=== PATIENT | female | born 1985 | race Caucasian/White ===

== ENCOUNTER → 2016-08-16 | Outpatient (CLI) | payer MEDICAID ==
[2016-08-16 12:56] LABS: ABSOLUTE EOSINOPHILS # (AUTO) 0.2 10^3/uL (0.0-0.6); ABSOLUTE LYMPHOCYTES (AUTO) 2.2 10^3/uL (0.5-4.7); ABSOLUTE MONOCYTES (AUTO) 0.6 10^3/uL (0.1-1.4); ABSOLUTE NEUT (AUTO) 4.5 10^3/uL (1.7-8.2); BASOPHILS % (AUTO) 0.5 % (0-2); EOSINOPHILS % (AUTO) 2.3 % (0-6); HEMATOCRIT 38.3 % (36.0-47.0); HGB HCT DIFFERENCE 0.7; LYMPHOCYTES % (AUTO) 28.8 % (13-45); MEAN CORPUSCULAR HEMOGLOBIN 29.5 pg (27.0-33.4); MEAN CORPUSCULAR HGB CONC 33.9 g/dL (32.0-36.0); MEAN CORPUSCULAR VOLUME 87 fl (80-97); MONOCYTES % (AUTO) 8.3 % (3-13); RED BLOOD COUNT 4.39 10^6/uL (3.72-5.28); RED CELL DISTRIBUTION WIDTH 15.1 % (11.5-14.0); SEGMENTED NEUTROPHILS % (AUTO) 60.1 % (42-78); WHITE BLOOD COUNT 7.5 10^3/uL (4.0-10.5)
== END ==
LOC: OD 12:08
PROVIDERS: ATTEND Otolaryngology
DX: Z72.0 Tobacco use (principal)
CPT/HCPCS: 36415; 85025

== ENCOUNTER 2016-08-31 06:39 | Day surgery (SDC) | payer MEDICAID ==
[2016-08-31] MEDS ORDERED: LIDOCAINE 1%/EPINEPHRINE INJ 20 ML VIAL ONE (06:51)
[2016-08-31] MEDS ORDERED: EPINEPHRINE INJ 30 MG/30 ML VIAL ONE (06:51)
[2016-08-31] MEDS ORDERED: CIPROFLOXACIN HCL/DEXAMETH OTIC DROP 7.5 ML ONE (06:51)
[2016-08-31] MEDS ORDERED: DEXAMETHASONE SOD PHOSPHATE INJ 4 MG/1 ML VIAL ONE (07:18)
[2016-08-31] MEDS ORDERED: PROPOFOL INJ 200 MG/20 ML VIAL IV ONE (07:19)
[2016-08-31] MEDS ORDERED: ONDANSETRON HCL INJ/PF 4 MG/2 ML SDV ONE (07:19)
[2016-08-31] MEDS ORDERED: FENTANYL CITRATE INJ/PF 100 MCG/2 ML AMPUL ONE (07:19)
[2016-08-31] MEDS ORDERED: MORPHINE SULFATE 10 MG/ML INJ ONE (07:19)
[2016-08-31] MEDS ORDERED: MIDAZOLAM 2 MG/2 ML INJ ONE (07:19)
[2016-08-31] MEDS ORDERED: SUCCINYLCHOLINE CHLORIDE INJ 200 MG/10 ML VIAL ONE (07:20)
[2016-08-31] MEDS ORDERED: ALBUTEROL SULFATE 0.083% NEB 2.5 MG/3 ML AMPUL NEB ONE (07:28)
[2016-08-31] MEDS ORDERED: IBUPROFEN 800 MG TABLET ONE (10:46)
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
== END 2016-08-31 11:10 | disposition home or self-care (01) ==
LOC: SC 06:39
PROVIDERS: ATTEND Otolaryngology
PROC: 09U70JZ Supplement Right Tympanic Membrane with Synthetic Substitute, Open Approach (ICD-10-PCS; principal; 2016-08-31 07:30)
DX: H72.91 Unspecified perforation of tympanic membrane, right ear (principal); H90.11 Conductive hearing loss, unilateral, right ear, with unrestricted hearing on the contralateral side; F17.210 Nicotine dependence, cigarettes, uncomplicated
CPT/HCPCS: 69631; J2250; J3490 ×3; J1100; J0171; J3010; J2270; J0330; J2405; J2704; 120

== ENCOUNTER 2018-01-27 11:11 | Inpatient (IN) | payer SELFPAY ==
--- NOTE | 2018-01-27 11:20 | ER Document Report ---
ED Medical Screen (RME) - General Chief Complaint: Flank Pain Stated Complaint: FLANK PAIN, BACK PAIN Time Seen by Provider: 01/27/18 11:18 Mode of Arrival: Wheelchair Information source: Patient Notes: 32-year-old female presents to ED for bilateral flank pain 3 days. She is short of breath pulse is 128 apically. Patient lungs are clear does have slight pain bilaterally. I have greeted and performed a rapid initial assessment of this patient. A comprehensive ED assessment and evaluation of the patient, analysis of test results and completion of medical decision making process will be conducted by an additional ED providers. TRAVEL OUTSIDE OF THE [place] IN LAST 30 DAYS: No - Related Data Allergies/Adverse Reactions: No Known Allergies Allergy (Verified 09/18/14 17:46) Past Medical History - Past Medical History Cardiac Medical History: Denies: Hx Coronary Artery Disease, Hx Heart Attack, Hx Hypertension Pulmonary Medical History: Denies: Hx Asthma, Hx Bronchitis, Hx COPD, Hx Pneumonia Neurological Medical History: Reports: Hx Seizures - x1 3 YEARS AGO,D/T MEDICATION-antidepressant??. Denies: Hx Cerebrovascular Accident GI Medical History: Denies: Hx Hepatitis, Hx Hiatal Hernia, Hx Ulcer Musculoskeltal Medical History: Denies Hx Arthritis Psychiatric Medical History: Reports: Hx Bipolar Disorder, Hx Depression Infectious Medical History: Denies: Hx Hepatitis Past Surgical History: Reports: Hx Tubal Ligation. Denies: Hx Mastectomy, Hx Open Heart Surgery, Hx Pacemaker - Immunizations Hx Diphtheria, Pertussis, Tetanus Vaccination: Yes Doctor's Discharge - Discharge Referrals: XENA LIGHT MD [Primary Care Provider] - Follow up as needed
[2018-01-27 11:54] LABS: APPEARANCE,URINE CLOUDY; BILIRUBIN,URINE NEGATIVE (NEGATIVE); COLOR,URINE YELLOW; GLUCOSE, URINE NEGATIVE (NEGATIVE); KETONES,URINE TRACE mg/dL (NEGATIVE); LEUKOCYTE ESTERASE,URINE MODERATE (NEGATIVE); NITRITE,URINE NEGATIVE (NEGATIVE); PROTEIN,URINE >=500 mg/dL (NEGATIVE); URINE SPECIFIC GRAVITY 1.018
[2018-01-27 11:55] LABS: ALANINE AMINOTRANSFERASE 13 U/L (9-52); ALBUMIN 3.9 g/dL (3.5-5.0); ALKALINE PHOSPHATASE 119 U/L (38-126); ANION GAP 14 (5-19); ASPARTATE AMINO TRANSFERASE 21 U/L (14-36); BILIRUBIN,DIRECT 0.4 mg/dL (0.0-0.4); BLOOD UREA NITROGEN 14 mg/dL (7-20); CARBON DIOXIDE 25 mmol/L (22-30); CHLORIDE 94 mmol/L (98-107); GLUCOSE 105 mg/dL (75-110); POTASSIUM 3.4 mmol/L (3.6-5.0); SODIUM 132.7 mmol/L (137-145)
[2018-01-27 11:59] LABS: HEMATOCRIT 38.8 % (36.0-47.0); HEMOGLOBIN 13.1 g/dL (12.0-15.5); MEAN CORPUSCULAR HEMOGLOBIN 30.2 pg (27.0-33.4); MEAN CORPUSCULAR HGB CONC 33.7 g/dL (32.0-36.0); MEAN CORPUSCULAR VOLUME 90 fl (80-97); PLATELET COUNT 182 10^3/uL (150-450); RED BLOOD COUNT 4.34 10^6/uL (3.72-5.28); RED CELL DISTRIBUTION WIDTH 13.5 % (11.5-14.0); WHITE BLOOD COUNT 21.2 10^3/uL (4.0-10.5)
[2018-01-27] MEDS ORDERED: KETOROLAC TROMETHAMINE INJ/PF 30 MG/1 ML SDV IV ONE (11:59)
[2018-01-27] MEDS ORDERED: CEFTRIAXONE INJ 1000 MG VIAL IM ONE (12:07)
--- NOTE | 2018-01-27 12:07 | ER Document Report ---
ED General - General Chief Complaint: Flank Pain Stated Complaint: FLANK PAIN, BACK PAIN Time Seen by Provider: 01/27/18 11:18 Mode of Arrival: Wheelchair Notes: Patient is a 32-year-old female who complains of bilateral flank pain and dysuria 3 days. Patient unsure if she is having fevers at home. Patient reports history of kidney infections states that this feels similar. Patient reports nausea without vomiting. TRAVEL OUTSIDE OF THE [place] IN LAST 30 DAYS: No - Related Data Allergies/Adverse Reactions: No Known Allergies Allergy (Verified 09/18/14 17:46) Past Medical History - General Information source: Patient - Social History Smoking Status: Current Some Day Smoker Frequency of alcohol use: Occasional Drug Abuse: None Family History: Reviewed & Not Pertinent - Past Medical History Cardiac Medical History: Denies: Hx Coronary Artery Disease, Hx Heart Attack, Hx Hypertension Pulmonary Medical History: Denies: Hx Asthma, Hx Bronchitis, Hx COPD, Hx Pneumonia Neurological Medical History: Reports: Hx Seizures - x1 3 YEARS AGO,D/T MEDICATION-antidepressant??. Denies: Hx Cerebrovascular Accident Renal/ Medical History: Reports: Other - Pyelonephritis GI Medical History: Denies: Hx Hepatitis, Hx Hiatal Hernia, Hx Ulcer Musculoskeletal Medical History: Denies Hx Arthritis Psychiatric Medical History: Reports: Hx Bipolar Disorder, Hx Depression Infectious Medical History: Denies: Hx Hepatitis Past Surgical History: Reports: Hx Tubal Ligation. Denies: Hx Mastectomy, Hx Open Heart Surgery, Hx Pacemaker - Immunizations Hx Diphtheria, Pertussis, Tetanus Vaccination: Yes Review of Systems - Review of Systems Gastrointestinal: Nausea Genitourinary: Flank pain, Hematuria -: Yes All other systems reviewed and negative Physical Exam - Vital signs Vitals: Temp Pulse Resp BP Pulse Ox 98.5 F 128 H 22 H 100/65 100 01/27/18 11:18 01/27/18 11:18 01/27/18 11:18 01/27/18 11:18 01/27/18 11:18 - Notes Notes: PHYSICAL EXAMINATION: GENERAL: Ill-appearing, well-nourished and in moderate discomfort. HEAD: Atraumatic, normocephalic. EYES: Pupils equal round and reactive to light, extraocular movements intact, conjunctiva are normal. ENT: Nares patent, oropharynx clear without exudates. Moist mucous membranes. NECK: Normal range of motion, supple without lymphadenopathy LUNGS: Breath sounds clear to auscultation bilaterally and equal. No wheezes rales or rhonchi. HEART: Regular rhythm without murmurs ABDOMEN: Soft, nontender, nondistended abdomen. No guarding, no rebound. No masses appreciated. Female : Bilateral CVA tenderness, greater to the right. Musculoskeletal: Normal range of motion, no pitting or edema. No cyanosis. NEUROLOGICAL: Cranial nerves grossly intact. Normal speech, normal gait. Normal sensory, motor exams PSYCH: Normal mood, normal affect. SKIN: Warm, Dry, normal turgor, no rashes or lesions noted. Course - Re-evaluation Re-evalutation: CBC reveals a white blood count of 21.2 with a left shift. Comprehensive metabolic panel with mild hyponatremia and hypokalemia. Urinalysis with proteinuria and moderate leukocyte esterase, 112 white blood cells and 3+ bacteria. CT abdomen pelvis with acute pyelonephritis bilaterally, more so to the right side. 1 g ceftriaxone given IV. Patient remains tachycardic after 2 L IV bolus will consult hospitalist for admission. 01/27/18 14:25 Patient accepted for admission by Dr. Lockwood - Vital Signs Vital signs: Temp Pulse Resp BP Pulse Ox 98.0 F 87 20 118/68 94 01/30/18 09:08 01/30/18 09:08 01/30/18 09:08 01/30/18 09:08 01/30/18 09:08 - Laboratory Result Diagrams: 01/30/18 06:09 01/30/18 06:09 Laboratory results interpreted by me: 01/27/18 01/27/18 01/27/18 11:30 11:30 11:30 WBC 21.2 H Band Neutrophils % 10 H Lymphocytes % (Manual) 2 L Abs Neuts (Manual) 18.7 H Abs Monocytes (Manual) 1.9 H Sodium 132.7 L Potassium 3.4 L Chloride 94 L Urine Protein >=500 H Urine Ketones TRACE H Urine Blood SMALL H Urine Urobilinogen 4.0 H Ur Leukocyte Esterase MODERATE H Discharge - Discharge Clinical Impression: Abdominal pain Condition: Stable Disposition: ADMITTED INPATIENT Admitting Provider: Hospitalist Unit Admitted: Medical Floor
[2018-01-27] MEDS ORDERED: NORMAL SALINE 1000 ML 1,000 ML IV ONE ×2 (12:10→12:36)
[2018-01-27] MEDS ORDERED: KETOROLAC TROMETHAMINE INJ/PF 30 MG/1 ML SDV ONE (12:10)
[2018-01-27] MEDS ORDERED: CEFTRIAXONE INJ 1000 MG VIAL IV ONE (12:10)
[2018-01-27] MEDS ORDERED: CEFTRIAXONE INJ 1000 MG VIAL ONE (12:24)
[2018-01-27 12:28] LABS: ABSOLUTE LYMPHOCYTES# (MANUAL) 0.6 10^3/uL (0.5-4.7); ABSOLUTE MONOCYTES # (MANUAL) 1.9 10^3/uL (0.1-1.4); ABSOLUTE NEUTROPHILS# (MANUAL) 18.7 10^3/uL (1.7-8.2); BAND NEUTROPHILS % (MANUAL) 10 % (3-5); BASOPHILS % (MANUAL) 0 % (0-2); EOSINOPHILS % (MANUAL) 0 % (0-6); LYMPHOCYTES % (MANUAL) 2 % (13-45); MONOCYTES % (MANUAL) 9 % (3-13); SEGMENTED NEUTROPHILS % (MAN) 78 % (42-78); TOTAL CELLS COUNTED 100
[2018-01-27 12:29] LABS: PLATELET COMMENT ADEQUATE; RBC MORPHOLOGY COMMENT NORMO-CYTIC/CHROMIC
[2018-01-27 12:30] LABS: TOXIC GRANULATION SLIGHT; TOXIC VACUOLATION PRESENT
[2018-01-27] MEDS ORDERED: MORPHINE SULFATE 10 MG/ML INJ IV ONE ×2 (12:38→14:32)
[2018-01-27] MEDS ORDERED: MORPHINE SULFATE 10 MG/ML INJ ONE (12:48)
--- NOTE | 2018-01-27 14:35 | RADIOLOGY REPORT (SQ) ---
EXAM DESCRIPTION: CT ABD/PELVIS WITH IV ONLY COMPLETED DATE/TIME: 01/27/2018 1:29 pm REASON FOR STUDY: BILAT FL PAIN; HIGH WBC COMPARISON: None. TECHNIQUE: CT scan of the abdomen and pelvis performed using helical scanning technique with dynamic intravenous contrast injection. No oral contrast. Images reviewed with lung, soft tissue, and bone windows. Reconstructed coronal and sagittal MPR images reviewed. Delayed images for evaluation of the urinary system also acquired. All images stored on PACS. All CT scanners at this facility use dose modulation, iterative reconstruction, and/or weight based d osing when appropriate to reduce radiation dose to as low as reasonably achievable (ALARA). [facility]: Dose Right [facility]: CareDose [facility]: Dose Right [facility]: Teradose 4D [facility]: Dizko Samurai CONTRAST TYPE AND DOSE: contrast/concentration: Isovue 350.00 mg/ml; Total Contrast Delivered: 50.0 ml; Total Saline Delivered: 65.0 ml RENAL FUNCTION: Creatinine: 0.98. RADIATION DOSE: CT Rad equipment meets quality standard of care and radiation dose reduction techniq ues were employed. CTDIvol: 4.8 mGy. DLP: 739 mGy-cm.. LIMITATIONS: None. FINDINGS: LOWER CHEST: No significant findings. No nodules or infiltrates. LIVER: Small rounded area of decreased attenuation measuring 4 mm left lobe liver most consistent wit h hepatic cyst. SPLEEN: No abnormality. PANCREAS: No abnormality. GALLBLADDER: No abnormality. ADRENAL GLANDS: No abnormality. RIGHT KIDNEY AND URETER: There wedge-shaped areas of decreased attenuation right kidney extending fr om the central kidney to the cortex. The findings are consistent with acute pyelonephritis Clinical correlation with in urinalysis would be useful. LEFT KIDNEY AND URETER: There are wedge-shaped areas of decreased attenuation within the left kidney sent consistent with acute pyelonephritis. AORTA AND VESSELS: No aneurysm. No dissection. Renal arteries, SMA, celiac without stenosis. RETROPERITONEUM: No retroperitoneal adenopathy, hemorrhage or masses. BOWEL AND PERITONEAL CAVITY: Fluid-filled loops of large and small bowel without transition zone coul d represent ileus. APPENDIX: Not well seen but believed to be normal wall on image 50/92 series 5) PELVIS: Urinary bladder: No abnormality. Uterus and adnexal regions: No abnormality. ABDOMINAL WALL: No abnormality. BONES: No abnormality. IMPRESSION: Findings consistent with acute pyelonephritis, right greater than left. Fluid-filled lo ops of large and small bowel which could represent changes of ileus and/or enteritis. Clinical corre lation needed. TECHNICAL DOCUMENTATION: JOB ID: [id number] [id number] Quality ID # [id number]: Final reports with documentation of one or more dose reduction techniques (e.g., Au tomated exposure control, adjustment of the mA and/or kV according to patient size, use of iterative reconstruction technique) 2010 [employer]- All Rights Reserved Reading location - IP/workstation name: [email or web address]
[2018-01-27] MEDS ORDERED: ONDANSETRON HCL INJ/PF 4 MG/2 ML SDV IV PRN (14:55)
[2018-01-27] MEDS ORDERED: ACETAMINOPHEN 325 MG TABLET PO PRN (14:55)
[2018-01-27] MEDS ORDERED: NORMAL SALINE 1000 ML 1,000 ML IV PRN (14:55)
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
[2018-01-27] MEDS: POTASSIUM CHLORIDE 10 MEQ CAPSULE.ER PO SCH (17:20)
[2018-01-27] MEDS ORDERED: MORPHINE SULFATE 10 MG/ML INJ IV SCH (18:00)
[2018-01-27] MEDS: FAMOTIDINE 20 MG TABLET PO SCH (22:00)
[2018-01-27] MEDS ORDERED: LINEZOLID 600 MG/300 ML RTUPB IV SCH (22:00)
[2018-01-28 06:28] LABS: ABSOLUTE LYMPHOCYTES (AUTO) 0.6 10^3/uL (0.5-4.7); ABSOLUTE MONOCYTES (AUTO) 1.3 10^3/uL (0.1-1.4); ABSOLUTE NEUT (AUTO) 10.1 10^3/uL (1.7-8.2); BASOPHILS % (AUTO) 0.2 % (0-2); EOSINOPHILS % (AUTO) 0.3 % (0-6); HEMATOCRIT 29.1 % (36.0-47.0); LYMPHOCYTES % (AUTO) 5.1 % (13-45); MEAN CORPUSCULAR HEMOGLOBIN 31.2 pg (27.0-33.4); MEAN CORPUSCULAR HGB CONC 34.9 g/dL (32.0-36.0); MEAN CORPUSCULAR VOLUME 89 fl (80-97); PLATELET COUNT 136 10^3/uL (150-450); RED BLOOD COUNT 3.26 10^6/uL (3.72-5.28); RED CELL DISTRIBUTION WIDTH 13.3 % (11.5-14.0); SEGMENTED NEUTROPHILS % (AUTO) 83.4 % (42-78); TOTAL CELLS COUNTED % (AUTO) 100 %; WHITE BLOOD COUNT 12.1 10^3/uL (4.0-10.5)
[2018-01-28 06:31] LABS: HEMOGLOBIN 10.2 g/dL (12.0-15.5)
[2018-01-28 06:56] LABS: ANION GAP 6 (5-19); BLOOD UREA NITROGEN 10 mg/dL (7-20); CALCIUM 7.9 mg/dL (8.4-10.2); CARBON DIOXIDE 22 mmol/L (22-30); CHLORIDE 105 mmol/L (98-107); GLUCOSE 84 mg/dL (75-110); POTASSIUM 3.4 mmol/L (3.6-5.0); SODIUM 132.8 mmol/L (137-145)
[2018-01-28] MEDS ORDERED: MORPHINE SULFATE 10 MG/ML INJ ONE (08:34)
[2018-01-28] MEDS: MORPHINE SULFATE 10 MG/ML INJ IV PRN ×3 (08:38→17:02)
[2018-01-28] MEDS: CEFTRIAXONE SODIUM 2,000 MG in NORMAL SALINE 100 ML IV SCH (09:38)
[2018-01-28] MEDS: POTASSIUM CHLORIDE 10 MEQ CAPSULE.ER PO SCH ×2 (09:39→12:46)
[2018-01-28] MEDS: FAMOTIDINE 20 MG TABLET PO SCH ×2 (09:39→22:20)
[2018-01-28] MEDS ORDERED: DOCUSATE SODIUM 100 MG CAPSULE PO SCH (10:00)
[2018-01-28] MEDS ORDERED: CEFTRIAXONE 2 GM/D5W RTU 2 GM/50 ML RTUPB IV SCH (10:00)
--- NOTE | 2018-01-28 10:26 | PDOC PROGRESS REPORT ---
Subjective Progress Note for:: 01/28/18 Subjective:: 32-year-old white female with right pyelonephritis. White count down to 12,000 still significant pain in the right flank. Urinalysis not sent from emergency room for culture. T-max 101.1. Tolerating meals. No new complaints Reason For Visit: PYELONEPHRITIS Physical Exam Vital Signs: Temp Pulse Resp BP Pulse Ox 99.6 F 119 H 20 100/68 99 01/28/18 08:42 01/28/18 08:42 01/28/18 08:42 01/28/18 08:42 01/28/18 08:42 Intake & Output 01/27/18 01/28/18 01/29/18 06:59 06:59 06:59 Intake Total 586 Balance 586 Weight 44.8 kg General appearance: PRESENT: no acute distress, well-developed, well-nourished Head exam: PRESENT: atraumatic, normocephalic Neck exam: ABSENT: carotid bruit, JVD, lymphadenopathy, thyromegaly Respiratory exam: PRESENT: clear to auscultation tracy. ABSENT: rales, rhonchi, wheezes Cardiovascular exam: PRESENT: RRR. ABSENT: diastolic murmur, rubs, systolic murmur GI/Abdominal exam: PRESENT: normal bowel sounds, soft, tenderness - Right CVA percussive tenderness. ABSENT: distended, guarding, mass, organolmegaly, rebound Extremities exam: PRESENT: full ROM. ABSENT: calf tenderness, clubbing, pedal edema Musculoskeletal exam: ABSENT: ambulatory, deformity, dislocation, full ROM, normal inspection, tenderness, other Results Laboratory Results: 01/28/18 06:07 01/28/18 06:07 01/27/18 01/28/18 01/28/18 16:25 06:07 06:07 WBC 12.1 H RBC 3.26 L Hgb 10.2 L D Hct 29.1 L MCV 89 MCH 31.2 MCHC 34.9 RDW 13.3 Plt Count 136 L Seg Neutrophils % 83.4 H Lymphocytes % 5.1 L Monocytes % 11.0 Eosinophils % 0.3 Basophils % 0.2 Absolute Neutrophils 10.1 H Absolute Lymphocytes 0.6 Absolute Monocytes 1.3 Absolute Eosinophils 0.0 Absolute Basophils 0.0 Sodium 132.8 L Potassium 3.4 L Chloride 105 Carbon Dioxide 22 Anion Gap 6 BUN 10 Creatinine 0.89 Est GFR ( Amer) > 60 Est GFR (Non-Af Amer) > 60 Glucose 84 Lactic Acid 0.7 Calcium 7.9 L Magnesium 2.1 Impressions: Abdomen/Pelvis CT 01/27/18 12:42 IMPRESSION: Findings consistent with acute pyelonephritis, right greater than left. Fluid-filled loops of large and small bowel which could represent changes of ileus and/or enteritis. Clinical correlation needed. Assessment & Plan - Diagnosis (1) Pyelonephritis Is this a current diagnosis for this admission?: Yes Plan: Urine culture not sent from emergency room. Have ordered stat urine culture continue Rocephin 2 g daily for the next 24 hours then decrease to 1 g daily pending culture results.We will discharge when patient White count normal no longer febrile and tolerating p.o. antibiotics. Decrease normal saline to 125 (2) Sepsis Qualifiers: Sepsis type: sepsis due to unspecified organism Qualified Code(s): A41.9 - Sepsis, unspecified organism Is this a current diagnosis for this admission?: Yes Plan: Lactic acid 0.7 hemodynamically stable sepsis has resolved. (3) Hypokalemia Is this a current diagnosis for this admission?: Yes Plan: Potassium 3.4 increase p.o. supplementation at 20 mEq daily BMP in a.m.
[2018-01-28] MEDS: BENZOCAINE/MENTHOL SORE THROAT LOZENGE BUCCAL PRN (16:57)
[2018-01-28] MEDS: DOCUSATE SODIUM 100 MG CAPSULE PO SCH (17:02)
[2018-01-28] MEDS: OXYCODONE-ACETAMINOPHEN 5-325 MG TABLET PO PRN (22:20)
[2018-01-29] MEDS: NORMAL SALINE 1000 ML 1,000 ML IV PRN ×2 (04:42→22:40)
[2018-01-29 07:05] LABS: HEMATOCRIT 31.4 % (36.0-47.0); HEMOGLOBIN 10.8 g/dL (12.0-15.5); MEAN CORPUSCULAR HGB CONC 34.3 g/dL (32.0-36.0); MEAN CORPUSCULAR VOLUME 91 fl (80-97); PLATELET COUNT 131 10^3/uL (150-450); RED BLOOD COUNT 3.47 10^6/uL (3.72-5.28); RED CELL DISTRIBUTION WIDTH 13.5 % (11.5-14.0); WHITE BLOOD COUNT 5.9 10^3/uL (4.0-10.5)
[2018-01-29 07:10] LABS: ANION GAP 6 (5-19); BLOOD UREA NITROGEN 6 mg/dL (7-20); CALCIUM 8.2 mg/dL (8.4-10.2); CARBON DIOXIDE 24 mmol/L (22-30); CHLORIDE 106 mmol/L (98-107); GLUCOSE 88 mg/dL (75-110); POTASSIUM 3.6 mmol/L (3.6-5.0); SODIUM 135.6 mmol/L (137-145)
[2018-01-29] MEDS: OXYCODONE-ACETAMINOPHEN 5-325 MG TABLET PO PRN ×4 (07:17→22:40)
[2018-01-29 07:45] LABS: ABSOLUTE LYMPHOCYTES# (MANUAL) 0.7 10^3/uL (0.5-4.7); ABSOLUTE MONOCYTES # (MANUAL) 0.5 10^3/uL (0.1-1.4); ABSOLUTE NEUTROPHILS# (MANUAL) 4.6 10^3/uL (1.7-8.2); BASOPHILS % (MANUAL) 1 % (0-2); EOSINOPHILS % (MANUAL) 0 % (0-6); LYMPHOCYTES % (MANUAL) 11 % (13-45); MONOCYTES % (MANUAL) 9 % (3-13); SEGMENTED NEUTROPHILS % (MAN) 78 % (42-78); TOTAL CELLS COUNTED 100
[2018-01-29 07:46] LABS: OVALOCYTES SLIGHT; PLATELET COMMENT DECREASED; POIKILOCYTOSIS SLIGHT
[2018-01-29] MEDS: FAMOTIDINE 20 MG TABLET PO SCH ×2 (10:02→23:00)
[2018-01-29] MEDS: POTASSIUM CHLORIDE 10 MEQ CAPSULE.ER PO SCH (10:02)
[2018-01-29] MEDS: CEFTRIAXONE SODIUM 2,000 MG in NORMAL SALINE 100 ML IV SCH (10:02)
[2018-01-29] MEDS: DOCUSATE SODIUM 100 MG CAPSULE PO SCH ×2 (10:03→17:32)
--- NOTE | 2018-01-29 11:00 | PDOC PROGRESS REPORT ---
Subjective Progress Note for:: 01/29/18 Subjective:: 32-year-old white female with right pyelonephritis. White count down to 12,000 still significant pain in the right flank. Urinalysis not sent from emergency room for culture. T-max 99.3. Tolerating meals. No new complaints Reason For Visit: PYELONEPHRITIS Physical Exam Vital Signs: Temp Pulse Resp BP Pulse Ox 99.3 F 101 H 18 105/58 L 97 01/29/18 07:22 01/29/18 07:22 01/29/18 07:22 01/29/18 07:22 01/29/18 07:22 Intake & Output 01/28/18 01/29/18 01/30/18 06:59 06:59 06:59 Intake Total 586 580 Balance 586 580 Weight 44.8 kg 45.7 kg General appearance: PRESENT: no acute distress, well-developed, well-nourished Eye exam: PRESENT: conjunctiva pink, EOMI, PERRLA. ABSENT: scleral icterus Neck exam: ABSENT: carotid bruit, JVD, lymphadenopathy, thyromegaly Respiratory exam: PRESENT: clear to auscultation tracy. ABSENT: rales, rhonchi, wheezes Cardiovascular exam: PRESENT: RRR. ABSENT: diastolic murmur, rubs, systolic murmur GI/Abdominal exam: PRESENT: normal bowel sounds, soft, tenderness - Right CVA tenderness. ABSENT: distended, guarding, mass, organolmegaly, rebound Extremities exam: ABSENT: pedal edema Musculoskeletal exam: PRESENT: ambulatory. ABSENT: deformity, tenderness Results Laboratory Results: 01/29/18 06:30 01/29/18 06:30 01/29/18 01/29/18 06:30 06:30 WBC 5.9 RBC 3.47 L Hgb 10.8 L Hct 31.4 L MCV 91 MCH 31.0 MCHC 34.3 RDW 13.5 Plt Count 131 L Seg Neutrophils % Not Reportable Lymphocytes % Not Reportable Monocytes % Not Reportable Eosinophils % Not Reportable Basophils % Not Reportable Absolute Neutrophils Not Reportable Absolute Lymphocytes Not Reportable Absolute Monocytes Not Reportable Absolute Eosinophils Not Reportable Absolute Basophils Not Reportable Sodium 135.6 L Potassium 3.6 Chloride 106 Carbon Dioxide 24 Anion Gap 6 BUN 6 L Creatinine 0.77 Est GFR ( Amer) > 60 Est GFR (Non-Af Amer) > 60 Glucose 88 Calcium 8.2 L Impressions: Abdomen/Pelvis CT 01/27/18 12:42 IMPRESSION: Findings consistent with acute pyelonephritis, right greater than left. Fluid-filled loops of large and small bowel which could represent changes of ileus and/or enteritis. Clinical correlation needed. Assessment & Plan - Diagnosis (1) Pyelonephritis Is this a current diagnosis for this admission?: Yes Plan: Cultures still pending. Decrease Rocephin to 1 g every 24 hours. When ID and sensitivity known discharge on p.o. antibiotics. (2) Hypokalemia Is this a current diagnosis for this admission?: Yes Plan: Resolved (4) Sepsis Qualifiers: Sepsis type: sepsis due to unspecified organism Qualified Code(s): A41.9 - Sepsis, unspecified organism Is this a current diagnosis for this admission?: Yes - Time Time Spent with patient: 15-24 minutes Anticipated discharge: Home
[2018-01-29] MEDS: BENZOCAINE/MENTHOL SORE THROAT LOZENGE BUCCAL PRN ×2 (17:32→22:40)
[2018-01-30 06:33] LABS: ABSOLUTE EOSINOPHILS # (AUTO) 0.1 10^3/uL (0.0-0.6); ABSOLUTE LYMPHOCYTES (AUTO) 0.8 10^3/uL (0.5-4.7); ABSOLUTE MONOCYTES (AUTO) 1.2 10^3/uL (0.1-1.4); ABSOLUTE NEUT (AUTO) 4.9 10^3/uL (1.7-8.2); BASOPHILS % (AUTO) 0.6 % (0-2); EOSINOPHILS % (AUTO) 1.4 % (0-6); LYMPHOCYTES % (AUTO) 11.5 % (13-45); MEAN CORPUSCULAR HEMOGLOBIN 30.9 pg (27.0-33.4); MEAN CORPUSCULAR HGB CONC 34.5 g/dL (32.0-36.0); MEAN CORPUSCULAR VOLUME 90 fl (80-97); MONOCYTES % (AUTO) 16.7 % (3-13); PLATELET COUNT 152 10^3/uL (150-450); RED BLOOD COUNT 3.57 10^6/uL (3.72-5.28); RED CELL DISTRIBUTION WIDTH 13.6 % (11.5-14.0); SEGMENTED NEUTROPHILS % (AUTO) 69.8 % (42-78); TOTAL CELLS COUNTED % (AUTO) 100 %
[2018-01-30 07:01] LABS: ANION GAP 8 (5-19); BLOOD UREA NITROGEN 6 mg/dL (7-20); CALCIUM 8.2 mg/dL (8.4-10.2); CARBON DIOXIDE 22 mmol/L (22-30); CHLORIDE 106 mmol/L (98-107); GLUCOSE 83 mg/dL (75-110); POTASSIUM 3.4 mmol/L (3.6-5.0); SODIUM 136.3 mmol/L (137-145)
[2018-01-30] MEDS: NORMAL SALINE 1000 ML 1,000 ML IV PRN (07:11)
[2018-01-30 09:10] VITALS: BP 118/68
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
== END 2018-01-30 10:17 | disposition home or self-care (01) | DRG 872 ==
LOC: ER 11:11 → EH 14:51 → 2S 18:01
PROVIDERS: ADMIT Internal Medicine; ATTEND Internal Medicine
DX: A41.9 Sepsis, unspecified organism (principal); N10 Acute pyelonephritis; E87.1 Hypo-osmolality and hyponatremia; E87.6 Hypokalemia; F17.210 Nicotine dependence, cigarettes, uncomplicated; F31.9 Bipolar disorder, unspecified; Z98.51 Tubal ligation status; Z80.51 Family history of malignant neoplasm of kidney; Z80.0 Family history of malignant neoplasm of digestive organs
CPT/HCPCS: 36415; 74177; 80048; 80053; 81001; 83605; 83735; 84703; 85025; 87086; 96361; 96365; 96375; 99285; J0696; J1885; J2020; J2270

== ENCOUNTER 2018-06-21 06:17 | Emergency (ER) | payer SELFPAY ==
[2018-06-21] MEDS ORDERED: KETOROLAC TROMETHAMINE INJ/PF 30 MG/1 ML SDV IV ONE (07:50)
[2018-06-21] MEDS ORDERED: NORMAL SALINE 1000 ML 1,000 ML IV ONE (07:50)
[2018-06-21 08:24] LABS: ABSOLUTE LYMPHOCYTES (AUTO) 1.3 10^3/uL (0.5-4.7); ABSOLUTE MONOCYTES (AUTO) 1.2 10^3/uL (0.1-1.4); BASOPHILS % (AUTO) 0.3 % (0-2); HEMATOCRIT 40.1 % (36.0-47.0); HEMOGLOBIN 13.6 g/dL (12.0-15.5); LYMPHOCYTES % (AUTO) 9.7 % (13-45); MEAN CORPUSCULAR HEMOGLOBIN 29.8 pg (27.0-33.4); MEAN CORPUSCULAR VOLUME 88 fl (80-97); PLATELET COUNT 211 10^3/uL (150-450); RED BLOOD COUNT 4.58 10^6/uL (3.72-5.28); RED CELL DISTRIBUTION WIDTH 13.8 % (11.5-14.0); TOTAL CELLS COUNTED % (AUTO) 100 %; WHITE BLOOD COUNT 13.6 10^3/uL (4.0-10.5)
[2018-06-21 08:37] LABS: ALANINE AMINOTRANSFERASE 20 U/L (9-52); ALBUMIN 4.8 g/dL (3.5-5.0); ALKALINE PHOSPHATASE 94 U/L (38-126); ANION GAP 12 (5-19); ASPARTATE AMINO TRANSFERASE 18 U/L (14-36); BILIRUBIN,DIRECT 0.2 mg/dL (0.0-0.4); BILIRUBIN,TOTAL 1.4 mg/dL (0.2-1.3); BLOOD UREA NITROGEN 12 mg/dL (7-20); CALCIUM 9.3 mg/dL (8.4-10.2); CARBON DIOXIDE 28 mmol/L (22-30); CHLORIDE 96 mmol/L (98-107); GLUCOSE 96 mg/dL (75-110); POTASSIUM 3.7 mmol/L (3.6-5.0); SODIUM 135.9 mmol/L (137-145); TOTAL PROTEIN 7.4 g/dL (6.3-8.2)
[2018-06-21] MEDS ORDERED: PHENAZOPYRIDINE HCL 200 MG TABLET PO ONE (08:39)
[2018-06-21] MEDS ORDERED: DEXTROSE 5%-LACTATED RINGERS 1,000 ML IV ONE (09:06)
[2018-06-21 09:34] LABS: APPEARANCE,URINE CLOUDY; BILIRUBIN,URINE NEGATIVE (NEGATIVE); COLOR,URINE YELLOW; GLUCOSE, URINE NEGATIVE (NEGATIVE); KETONES,URINE TRACE mg/dL (NEGATIVE); LEUKOCYTE ESTERASE,URINE LARGE (NEGATIVE); NITRITE,URINE POSITIVE (NEGATIVE); PROTEIN,URINE 100 mg/dL (NEGATIVE); URINE SPECIFIC GRAVITY 1.012
[2018-06-21] MEDS ORDERED: CEFTRIAXONE 1 GM/D5W RTU 1 GM/50 ML RTUPB IV ONE (10:00)
[2018-06-21] MEDS ORDERED: FLUCONAZOLE 100 MG TABLET PO ONE (10:04)
[2018-06-21 12:08] VITALS: BP 120/67
--- NOTE | 2018-06-21 14:08 | ER Document Report ---
Entered by LAURY ORTEGA SCRIBE 06/21/18 0754 Acting as scribe for:DAVID ARNDT MD ED GI/ - General Chief Complaint: Flank Pain Stated Complaint: FLANK PAIN Time Seen by Provider: 06/21/18 07:23 Mode of Arrival: Ambulatory Information source: Patient Notes: 32-year-old female presents to the emergency department today with complaints of right-sided "kidney pain" that slowly began last night. Patient states this morning she has noticed burning with urination. Patient has a history of pyelonephritis. Patient states her period began 2 days ago, is on time, but heavy. Patient denies any fevers, urinary frequency, or urinary urgency. The patient was admitted here on 01/27/2018 with pyelonephritis. At that time a CT scan was done which did show right pyelonephritis, but not show any nephrolithiasis. She had a leukocytosis with shift, her urine culture however had no growth at 2 days. TRAVEL OUTSIDE OF THE [place] IN LAST 30 DAYS: No - Related Data Allergies/Adverse Reactions: No Known Allergies Allergy (Verified 09/18/14 17:46) Past Medical History - General Information source: Patient - Social History Smoking Status: Current Every Day Smoker Cigarette use (# per day): Yes Frequency of alcohol use: None Drug Abuse: None Family History: Reviewed & Not Pertinent Patient has suicidal ideation: No Patient has homicidal ideation: No Neurological Medical History: Reports: Hx Seizures - x1 3 YEARS AGO,D/T MEDICATION-antidepressant?? Psychiatric Medical History: Reports: Hx Bipolar Disorder, Hx Depression Past Surgical History: Reports: Hx Tubal Ligation, Other - LEEP - Immunizations Hx Diphtheria, Pertussis, Tetanus Vaccination: Yes Review of Systems - Review of Systems Constitutional: denies: Fever EENT: No symptoms reported Cardiovascular: No symptoms reported Respiratory: No symptoms reported Gastrointestinal: See HPI, Abdominal pain - right Genitourinary: See HPI, Flank pain - right. denies: Urgency Female Genitourinary: No symptoms reported Musculoskeletal: No symptoms reported Skin: No symptoms reported Hematologic/Lymphatic: No symptoms reported Neurological/Psychological: No symptoms reported -: Yes All other systems reviewed and negative Physical Exam - Vital signs Vitals: Pulse Resp BP Pulse Ox 114 H 22 H 144/81 H 100 06/21/18 06:18 06/21/18 06:18 06/21/18 06:18 06/21/18 06:18 - Notes Notes: Physical Exam: General: Alert, appears uncomfortable. HEENT: Normocephalic. Atraumatic. PERRL. Extraocular movements intact. Oropharynx clear. Neck: Supple. Non-tender. Respiratory: Hyperventilating. Clear and equal breath sounds bilaterally. Cardiovascular: Tachycardic, regular rhythm. Abdominal: Right lower quadrant tenderness to palpation. No distension. Normal Bowel Sounds. Back: Right CVA tenderness to percussion. No deformity or step off. Extremities: Moves all four extremities. Upper extremities: Normal inspection. Normal ROM. Lower extremities: Normal inspection. No edema. Normal ROM. Neurological: Normal cognition. AAOx4. Normal speech. Psychological: Normal affect. Normal Mood. Skin: Warm. Dry. Normal color. Course - Vital Signs Vital signs: Temp Pulse Resp BP Pulse Ox 98.3 F 110 H 18 106/58 L 100 06/21/18 11:01 06/21/18 11:01 06/21/18 11:01 06/21/18 11:01 06/21/18 11:01 - Laboratory Result Diagrams: 06/21/18 08:00 06/21/18 08:00 Laboratory results interpreted by me: 06/21/18 06/21/18 06/21/18 08:00 08:00 08:00 WBC 13.6 H Seg Neutrophils % 81.0 H Lymphocytes % 9.7 L Absolute Neutrophils 11.0 H Sodium 135.9 L Chloride 96 L Lactic Acid 0.6 L Total Bilirubin 1.4 H Urine Protein Urine Ketones Urine Blood Urine Nitrite Urine Urobilinogen Ur Leukocyte Esterase 06/21/18 08:57 WBC Seg Neutrophils % Lymphocytes % Absolute Neutrophils Sodium Chloride Lactic Acid Total Bilirubin Urine Protein 100 H Urine Ketones TRACE H Urine Blood MODERATE H Urine Nitrite POSITIVE H Urine Urobilinogen 4.0 H Ur Leukocyte Esterase LARGE H Discharge - Discharge Clinical Impression: Pyelonephritis Condition: Stable Disposition: HOME, SELF-CARE Additional Instructions: Pyelonephritis Your evaluation shows evidence of pyelonephritis. This is an infection in the kidney. Typical symptoms are fever, pain in the flank, pain on urination, and frequent urination. Many cases of pyelonephritis can be treated at home. Hospital care may be necessary for patients who are very ill, or elderly or . Pyelonephritis is treated with antibiotics. Be sure to take all the medication as prescribed. Drink plenty of liquids (about three quarts per day). You may take acetaminophen for fever. You should feel significantly improved within two days. You should have a recheck of your urine in about one week to insure that the infection is gone. Return for a re-examination if your symptoms worsen in any way -- such as high fever, shaking chills, severe weakness or dizziness, severe pain, or inability to pass your urine. Take the medications as prescribed. Drink plenty of fluids throughout the day in the evening. Rest. Follow-up with your primary care provider if not improving. RETURN TO THE EMERGENCY ROOM IF ANY NEW OR WORSENING SYMPTOMS. Prescriptions: Ciprofloxacin HCl [Cipro 500 mg Tablet] 500 mg PO BID #14 tablet Hydrocodone/Acetaminophen [[place] 5-325 mg Tablet] 1 tab PO Q4 PRN #12 tablet PRN Reason: Scribe Attestation: 06/21/18 09:05 I personally performed the services described in the documentation, reviewed and edited the documentation which was dictated to the scribe in my presence, and it accurately records my words and actions. I personally performed the services described in the documentation, reviewed and edited the documentation which was dictated to the scribe in my presence, and it accurately records my words and actions.
== END 2018-06-21 11:52 | disposition home or self-care (01) ==
LOC: ER 06:17
DX: N12 Tubulo-interstitial nephritis, not specified as acute or chronic (principal); R10.9 Unspecified abdominal pain
CPT/HCPCS: 99284; 96361; 96375; 96365; 36415; 87040; 87086; 84703; 85025; 87088; 80053; 81001; 87186; 83605; J1885; J3490; J7030; J0696

== ENCOUNTER 2020-03-22 08:40 | Emergency (ER) | payer SELFPAY ==
--- NOTE | 2020-03-22 09:23 | ER Document Report ---
ED General - General Chief Complaint: Flank Pain Stated Complaint: FLANK PAIN Time Seen by Provider: 03/22/20 09:23 Primary Care Provider: CALVIN ALEJANDRO MD [ACTIVE STAFF] - Follow up as needed DES FENTON MD [EMERITUS] - Follow up as needed TRAVEL OUTSIDE OF THE [place] IN LAST 30 DAYS: No - HPI Notes: 34-year-old female with a history of pyelonephritis and acute kidney injury presents to the emergency room today with bilateral flank pain with dysuria that started yesterday afternoon. She reports that she has had 6 episodes where she has had pyelonephritis is, has not followed up with a auto transmission mechanic does not have a primary care provider. Denies any history of nephrolithiasis. Reports her last menstrual cycle was 2 weeks ago. Patient states she knows when she s tarts to feel the symptoms, and she needs to come to the emergency room for evaluation. Denies any fevers or chills, nausea, vomiting, diarrhea, chest pain, shortness of breath. Patient has not tried any [id number] medications for pain. Has been drinking cranberry juice without relief. - Related Data Allergies/Adverse Reactions: No Known Allergies Allergy (Verified 03/22/20 09:15) Past Medical History - General Information source: Patient - Social History Smoking Status: Current Every Day Smoker Chew tobacco use (# tins/day): No Frequency of alcohol use: None Drug Abuse: Marijuana Family History: Reviewed & Not Pertinent Patient has homicidal ideation: No - Past Medical History Cardiac Medical History: Denies: Hx Coronary Artery Disease, Hx Heart Attack, Hx Hypertension Pulmonary Medical History: Denies: Hx Asthma, Hx Bronchitis, Hx COPD, Hx Pneumonia Neurological Medical History: Reports: Hx Seizures - x1 3 YEARS AGO,D/T MEDICATION-antidepressant??. Denies: Hx Cerebrovascular Accident Renal/ Medical History: Denies: Hx Peritoneal Dialysis GI Medical History: Denies: Hx Hepatitis, Hx Hiatal Hernia, Hx Ulcer Musculoskeletal Medical History: Denies Hx Arthritis Psychiatric Medical History: Reports: Hx Bipolar Disorder, Hx Depression Infectious Medical History: Denies: Hx Hepatitis Past Surgical History: Reports: Hx Tubal Ligation, Other - LEEP. Denies: Hx Mastectomy, Hx Open Heart Surgery, Hx Pacemaker - Immunizations Hx Diphtheria, Pertussis, Tetanus Vaccination: Yes Review of Systems - Review of Systems Constitutional: No symptoms reported EENT: No symptoms reported Cardiovascular: No symptoms reported Respiratory: No symptoms reported Gastrointestinal: No symptoms reported Genitourinary: See HPI Female Genitourinary: No symptoms reported Musculoskeletal: No symptoms reported Skin: No symptoms reported Hematologic/Lymphatic: No symptoms reported Neurological/Psychological: No symptoms reported Physical Exam - Vital signs Vitals: Temp Pulse Resp BP Pulse Ox 98.4 F 118 H 16 130/81 H 100 03/22/20 08:44 03/22/20 08:44 03/22/20 08:44 03/22/20 08:44 03/22/20 08:44 - Notes Notes: MEDICATIONS: I agree with the patient medications as charted by the RN. ALLERGIES: I agree with the allergies as charted by the RN. PAST MEDICAL HISTORY/PAST SURGICAL HISTORY: Reviewed and agree as charted by RN. SOCIAL HISTORY: Reviewed and agree as charted by RN. FAMILY HISTORY: No significant familial comorbid conditions directly related to patient complaint EXAM: Reviewed vital signs as charted by RN. PHYSICAL EXAMINATION: reviewed vital signs by RN GENERAL: Well-appearing, well-nourished and in no acute distress. HEAD: Atraumatic, normocephalic. EYES: Pupils equal round and reactive to light, extraocular movements intact, conjunctiva are normal. ENT: Nares patent, oropharynx clear without exudates. Moist mucous membranes. NECK: Normal range of motion, supple without lymphadenopathy LUNGS: Breath sounds clear to auscultation bilaterally and equal. No wheezes rales or rhonchi. HEART: Regular rate and rhythm without murmurs ABDOMEN: Soft, nontender, nondistended abdomen. No guarding, no rebound. No masses appreciated. Bilateral CVA tenderness appreciated Female : deferred Musculoskeletal: Normal range of motion, no pitting or edema. No cyanosis. NEUROLOGICAL: Cranial nerves grossly intact. Normal speech, normal gait. Normal sensory, motor exams PSYCH: Normal mood, normal affect. SKIN: Warm, Dry, normal turgor, no rashes or lesions noted. Course - Re-evaluation Re-evalutation: 03/22/20 13:22 Afebrile vital stable no distress. Nurses notes reviewed. CBC negative for leukocytosis or anemia, CMP negative for hepatic or renal dysfunction, creat inine 0.75, BUN 12, electrolytes normal. Urinalysis unremarkable. Ultrasound of bilateral kidneys shows mild right hydronephrosis, otherwise normal. Patient did receive 1 L of IV fluids, heart rate was 123. D-dimer less than 0.27, which is negative. Patient denying any chest pain or shortness of breath. Patient stating that her pain was elevated and this was causing her heart rate to be elevated. Patient did receive 30 mg Toradol IVP. Discussed with patient that she does need to follow-up with a auto transmission mechanic, I did give her referral to Dr. Alejandro who is a local auto transmission mechanic regarding her hydronephrosis. Adamantly discussed with patient continue oral hydration, avoid any diuretics such as coffee, alcohol, etc. advised return to the emergency room if any of her symptoms become worse. We will send patient home with a 5-day prescription of Macrobid 100 mg twice daily prophylactically. After performing a Medical Screening Examination, I estimate there is LOW risk for ACUTE APPENDICITIS, BOWEL OBSTRUCTION, ACUTE CHOLECYSTITIS, PERFORATED DIVERTICULITIS, INCARCERATED HERNIA, PANCREATITIS, PELVIC INFLAMMATORY DISEASE, PERFORATED ULCER, ECTOPIC , or TUBO-OVARIAN ABSCESS, thus I consider the discharge disposition reasonable. Also, there is no evidence or peritonitis, sepsis, or toxicity. I have reevaluated this patient multiple times and no significant life threatening changes are noted. The patient and I have discussed the diagnosis and risks, and we agree with discharging home with close follow-up with the understanding that symptoms and presentations can change. We also discussed returning to the Emergency Department immediately if new or worsening symptoms occur. We have discussed the symptoms which are most concerning (e.g., bloody stool, fever, changing or worsening pain, vomiting) that necessitate immediate return. - Vital Signs Vital signs: Temp Pulse Resp BP Pulse Ox 98.4 F 118 H 22 H 118/84 100 03/22/20 08:44 03/22/20 08:44 03/22/20 12:31 03/22/20 12:31 03/22/20 12:31 - Laboratory Result Diagrams: 03/22/20 10:25 03/22/20 10:25 Laboratory results interpreted by me: 03/22/20 03/22/20 03/22/20 10:00 10:25 10:25 RDW 15.0 H Calcium 10.7 H Urine Ascorbic Acid 40 H Discharge - Discharge Clinical Impression: mild hydronephrosis on right Condition: Stable Disposition: HOME, SELF-CARE Additional Instructions: Your labs today were normal. Your ultrasound was normal as well. Your urinalysis was normal as well. Your ultrasound showed that you had mild hydronephrosis in your right kidney, this is why I would like you to follow-up with auto transmission mechanic. you received a liter of IV fluids which did bring down your heart rate. I will start you empirically on antibiotic therapy for 5 days. These follow-up with urologist and auto transmission mechanic within the next 24 to 48 hours. Return immediately for any new or worsening symptoms. Follow up with primary care provider, call tomorrow to make followup appointment. Prescriptions: Nitrofurantoin Monohyd/M-Cryst [Macrobid 100 mg Capsule] 100 mg PO BID #10 cap Forms: Return to Work Referrals: DES FENTON MD [EMERITUS] - Follow up as needed CALVIN ALEJANDRO MD [ACTIVE STAFF] - Follow up as needed
[2020-03-22] MEDS ORDERED: NORMAL SALINE 1000 ML 1,000 ML IV ONE (09:41)
[2020-03-22 10:29] LABS: APPEARANCE,URINE SLIGHTLY-CLOUDY; BILIRUBIN,URINE NEGATIVE (NEGATIVE); COLOR,URINE YELLOW; GLUCOSE, URINE NEGATIVE (NEGATIVE); KETONES,URINE NEGATIVE (NEGATIVE); LEUKOCYTE ESTERASE,URINE NEGATIVE (NEGATIVE); NITRITE,URINE NEGATIVE (NEGATIVE); PROTEIN,URINE NEGATIVE (NEGATIVE); URINE SPECIFIC GRAVITY 1.011; UROBILINOGEN,URINE NEGATIVE mg/dL (<2.0)
--- NOTE | 2020-03-22 10:47 | RADIOLOGY REPORT (SQ) ---
EXAM DESCRIPTION: U/S RETROPERITON (RENAL/AORTA) IMAGES COMPLETED DATE/TIME: 03/22/2020 10:13 am REASON FOR STUDY: bilateral flank pain, hx of pyelo COMPARISON: None. TECHNIQUE: Dynamic and static grayscale images acquired of the kidneys and bladder and recorded on P ACS. Additional selected color Doppler and spectral images recorded. LIMITATIONS: None. FINDINGS: RIGHT KIDNEY: Normal size. Normal echogenicity. No solid or suspicious masses. Mild dilatation of the renal pelvis 8 mm. No calcifications. LEFT KIDNEY: Normal size. Normal echogenicity. No solid or suspicious masses. No hydronephrosi s. No calcifications. BLADDER: No masses. OTHER FINDINGS: No other significant finding. IMPRESSION: Mild right hydronephrosis. Otherwise negative. TECHNICAL DOCUMENTATION: JOB ID: [id number] 2010 [employer]- All Rights Reserved Reading location - IP/workstation name: [email or web address]
[2020-03-22 10:50] LABS: ABSOLUTE LYMPHOCYTES (AUTO) 2.2 10^3/uL (0.5-4.7); ABSOLUTE MONOCYTES (AUTO) 0.6 10^3/uL (0.1-1.4); ABSOLUTE NEUT (AUTO) 4.5 10^3/uL (1.7-8.2); BASOPHILS % (AUTO) 0.4 % (0-2); EOSINOPHILS % (AUTO) 0.6 % (0-6); HEMATOCRIT 38.9 % (36.0-47.0); HEMOGLOBIN 13.6 g/dL (12.0-15.5); LYMPHOCYTES % (AUTO) 29.3 % (13-45); MEAN CORPUSCULAR HEMOGLOBIN 30.6 pg (27.0-33.4); MEAN CORPUSCULAR VOLUME 88 fl (80-97); MONOCYTES % (AUTO) 8.4 % (3-13); PLATELET COUNT 209 10^3/uL (150-450); RED BLOOD COUNT 4.44 10^6/uL (3.72-5.28); SEGMENTED NEUTROPHILS % (AUTO) 61.3 % (42-78); TOTAL CELLS COUNTED % (AUTO) 100 %; WHITE BLOOD COUNT 7.4 10^3/uL (4.0-10.5)
[2020-03-22 10:58] LABS: ALKALINE PHOSPHATASE 71 U/L (38-126); ANION GAP 11 (5-19); ASPARTATE AMINO TRANSFERASE 18 U/L (14-36); BILIRUBIN,TOTAL 0.7 mg/dL (0.2-1.3); BLOOD UREA NITROGEN 12 mg/dL (7-20); CALCIUM 10.7 mg/dL (8.4-10.2); CARBON DIOXIDE 25 mmol/L (22-30); CHLORIDE 104 mmol/L (98-107); GLUCOSE 103 mg/dL (75-110); TOTAL PROTEIN 7.9 g/dL (6.3-8.2)
--- NOTE | 2020-03-22 12:24 | RADIOLOGY REPORT (SQ) ---
EXAM DESCRIPTION: CHEST 2 VIEWS IMAGES COMPLETED DATE/TIME: 03/22/2020 12:11 pm REASON FOR STUDY: tachycardia COMPARISON: 09/18/2014 EXAM PARAMETERS: NUMBER OF VIEWS: two views TECHNIQUE: Digital Frontal and Lateral radiographic views of the chest acquired. RADIATION DOSE: NA LIMITATIONS: none FINDINGS: LUNGS AND PLEURA: No opacities, masses or pneumothorax. No pleural effusion. MEDIASTINUM AND HILAR STRUCTURES: No masses or contour abnormalities. HEART AND VASCULAR STRUCTURES: Heart normal size. No evidence for failure. BONES: No acute findings. HARDWARE: None in the chest. OTHER: No other significant finding. IMPRESSION: NO ACUTE RADIOGRAPHIC FINDING IN THE CHEST. TECHNICAL DOCUMENTATION: JOB ID: [id number] 2010 [employer]- All Rights Reserved Reading location - IP/workstation name: [email or web address]
[2020-03-22] MEDS ORDERED: KETOROLAC TROMETHAMINE INJ/PF 30 MG/1 ML SDV IV ONE (12:42)
[2020-03-22 13:01] VITALS: BP 118/84
== END 2020-03-22 13:10 | disposition home or self-care (01) ==
LOC: ER 08:40
DX: N13.30 Unspecified hydronephrosis (principal); R10.9 Unspecified abdominal pain; R30.0 Dysuria; F17.200 Nicotine dependence, unspecified, uncomplicated
CPT/HCPCS: 99285; 96361; 96374; 36415; 85025; 81025; 80053; 81001; 85379; 71046; 76770; J1885; J7030